=== PATIENT | female | born 1960 | race African-American/Black ===

== ENCOUNTER 2023-12-03 21:09 | Emergency (ER) | payer SELFPAY ==
[~2023-12-03] VITALS: Ht 160 cm; Wt 61.0 kg
[2023-12-03 21:26] VITALS: BP 130/74; PULSE 84; RESP 18; TEMP 97.8; O2SAT 97
[2023-12-04 03:54] LABS: BASOPHILS % 0.5 % (0.0-2.0); EOSINOPHILS % 1.1 % (0.0-5.0); HEMATOCRIT. 44.3 % (36.0-48.0); HEMOGLOBIN. 14.7 g/dL (12.0-16.0); LYMPHOCYTES % 22.9 % (20.0-50.0); MEAN CORPUSCULAR HEMOGLOBIN 29.4 pg (28.0-32.0); MEAN CORPUSCULAR HGB CONC 33.2 g/dL (31.0-37.0); MEAN CORPUSCULAR VOLUME 88.5 fL (81.0-99.0); MEAN PLATELET VOLUME 9.6 fl (7.4-10.4); MONOCYTES % 9.4 % (2.0-8.0); NEUTROPHILS % 66.1 % (40.0-76.0); PLATELET 284 x1000/uL (130-400); RED CELL DISTRIBUTION WIDTH 13.2 % (11.6-14.6); WHITE BLOOD COUNT 7.1 x1000/uL (4.5-11.0)
[2023-12-04] MEDS: HYDROXYZINE 10 MG TABLET PO NR (04:15)
[2023-12-04 04:16] LABS: CHLORIDE 99 mEq/L (98-107); POTASSIUM 3.2 mEq/L (3.5-5.1); SODIUM 137 mEq/L (136-145)
[2023-12-04 04:18] LABS: CALCIUM 10.8 mg/dL (8.7-10.4); CARBON DIOXIDE 27 mEq/L (21-32)
[2023-12-04 04:23] LABS: GLUCOSE 102 mg/dL (70-105)
[2023-12-04 04:24] LABS: UREA NITROGEN BLOOD 23 mg/dL (9-23)
[2023-12-04 04:25] LABS: ACETAMINOPHEN < 2 ug/mL (10-30); ALANINE AMINOTRANSFERASE 14 IU/L (10-49); ALBUMIN 5.1 g/dL (3.2-4.8); ASPARTATE AMINOTRANSFERASE 30 IU/L (<34)
[2023-12-04 04:26] LABS: BILIRUBIN TOTAL 2.2 mg/dL (0.1-1.0); PROTEIN TOTAL 8.8 g/dL (6.0-8.3)
[2023-12-04 05:11] LABS: ETHANOL BLOOD < 10 mg/dL (<10)
[2023-12-04] MEDS ORDERED: HYDR-459 MT (05:43)
== END 2023-12-04 06:21 | disposition home or self-care (01) ==
LOC: ER 21:09
DX: F41.9 Anxiety disorder, unspecified (principal); R74.01 Elevation of levels of liver transaminase levels
CPT/HCPCS: 36415; 80053; 80307; 80320; 80329; 85025; 99283; G0480